=== PATIENT | female | born 2000 | race Caucasian/White ===

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

== ENCOUNTER → 2021-01-20 | Outpatient (CLI) | payer BC ==
[2021-01-20 16:38] LABS: BASO % 0.4 % (0.0-1.0); EOS # 0.1 10^3/uL (0.0-0.5); EOS % 2.6 % (0.0-3.0); HEMATOCRIT 41.6 % (36.0-47.0); HEMOGLOBIN 13.4 g/dl (12.0-15.5); LYMPH # 1.3 10^3/uL (1.5-5.0); LYMPH % 24.2 % (24.0-44.0); MEAN CORPUSCULAR HEMOGLOBIN 29.5 pg (27.0-33.0); MEAN CORPUSCULAR HGB CONC 32.2 g/dl (32.0-36.5); MEAN CORPUSCULAR VOLUME 91.6 fl (80.0-96.0); MONO # 0.3 10^3/uL (0.0-0.8); MONO % 5.5 % (2.0-8.0); NEUTROPHILS # 3.6 10^3/uL (1.5-8.5); NEUTROPHILS % 67.1 % (36.0-66.0); RED BLOOD COUNT 4.54 10^6/uL (4.00-5.40); WHITE BLOOD COUNT 5.3 10^3/uL (4.0-10.0)
[2021-01-20 17:08] LABS: ALBUMIN 3.8 GM/DL (3.2-5.2); ALT/SGPT 20 U/L (12-78); BILIRUBIN,TOTAL 0.4 MG/DL (0.2-1.0); BLOOD UREA NITROGEN 6 MG/DL (7-18); CALCIUM LEVEL 9.5 MG/DL (8.5-10.1); CARBON DIOXIDE LEVEL 26 MEQ/L (21-32); CHLORIDE LEVEL 106 MEQ/L (98-107); CREATININE FOR GFR 0.51 MG/DL (0.55-1.30); GLUCOSE, FASTING 97 MG/DL (70-100); POTASSIUM SERUM 4.9 MEQ/L (3.5-5.1); SODIUM LEVEL 137 MEQ/L (136-145); TOTAL PROTEIN 7.1 GM/DL (6.4-8.2)
[2021-01-24 15:07] LABS: EBV AB TO NUCLEAR ANTIGEN 43.8 U/mL (0.0-17.9); EBV VIRAL CAPSID AG IgM <36.0 U/mL (0.0-35.9)
== END ==
LOC: M WUC 13:44
PROVIDERS: ATTEND Physician Assistant
DX: R59.0 Localized enlarged lymph nodes (principal)

== ENCOUNTER → 2021-01-24 | Outpatient (REF) | payer BC | LOC: M SFHCWAGY 17:08 | PROVIDERS: ATTEND Obstetrics & Gynecology | DX: R10.2 Pelvic and perineal pain (principal) ==

== ENCOUNTER → 2021-02-07 | Outpatient (CLI) | payer BC ==
--- NOTE | 2021-02-07 10:27 | REP ---
INDICATION: R10.2 PELVIC PAIN COMPARISON: None. TECHNIQUE: Transabdominal pelvic ultrasound followed by transvaginal examination for better evaluation of the endometrium and adnexa with color Doppler evaluation of the ovaries. FINDINGS: Bladder is collapsed and measures 3.0 x 1.1 x 2.7 cm. Normal retroverted uterus measures 6.2 x 2.9 x 3.7 cm. The endometrial complex measures 6 mm thickness. No discrete uterine or endometrial abnormalities are appreciated. Ovaries are not visualized due to excessive overlying bowel gas. IMPRESSION: Limited examination. No obvious abnormality to the uterus. Ovaries not visualized. <Electronically signed by Kirill Delcid > 02/07/21 [id number]
== END ==
LOC: M WHC 09:38
PROVIDERS: ATTEND Obstetrics & Gynecology
DX: R10.2 Pelvic and perineal pain (principal)

== ENCOUNTER → 2021-07-31 | Outpatient (CLI) | payer BC ==
[~2021-07-31] MED LIST: MILI1TAB PO; NAPR-849 PO
== END ==
LOC: M LABSMTC 10:57
PROVIDERS: ATTEND Anesthesiology
DX: Z01.818 Encounter for other preprocedural examination (principal); Z11.52 Encounter for screening for COVID-19

== ENCOUNTER 2021-08-04 08:52 | Day surgery (SDC) | payer BC ==
[~2021-08-04] VITALS: Ht 157.5 cm; Wt 63.5 kg
[~2021-08-04 08:52] MED LIST changes: +LIDOCAINE 1% MDV 20ML VIAL SQ PRN; +LIDOCAINE 2% 100MG/5ML SDV (FOR ANES.) As Ordered ONE; +LR 1,000 ML IV ONE; +MIDAZOLAM INJ 2MG/2ML VIAL (J2250 PER 1MG) As Ordered ONE; +ROCURONIUM BROMIDE 50 MG/5 ML VIAL As Ordered ONE; +fentaNYL 100 MCG/2 ML INJECTION (J3010) As Ordered ONE; +propofoL 200 MG/20 ML VIAL As Ordered ONE
[2021-08-04 09:40] LABS: HEMATOCRIT 37.6 % (36.0-47.0); HEMOGLOBIN 12.3 g/dl (12.0-15.5); MEAN CORPUSCULAR HEMOGLOBIN 30.3 pg (27.0-33.0); MEAN CORPUSCULAR HGB CONC 32.7 g/dl (32.0-36.5); MEAN CORPUSCULAR VOLUME 92.6 fl (80.0-96.0); PLATELET COUNT, AUTOMATED 241 10^3/uL (150-450); RED BLOOD COUNT 4.06 10^6/uL (4.00-5.40); WHITE BLOOD COUNT 6.6 10^3/uL (4.0-10.0)
[2021-08-04] MEDS ORDERED: BUPIVACAINE HCL 0.25% 10ML VIAL As Ordered ONE ×2 (10:25→11:03)
[2021-08-04] MEDS ORDERED: SILVER NITRATE APPLICATOR As Ordered ONE (10:26)
[2021-08-04] MEDS ORDERED: ONDANSETRON 4MG/2ML VIAL As Ordered ONE (11:03)
[2021-08-04] MEDS ORDERED: KETOROLAC 60MG 2ML VIAL As Ordered ONE (11:03)
[2021-08-04] MEDS ORDERED: ACETAMINOPHEN 1000MG 100ML IV BTL (OFIRMEV) (J0131 PER 10MG) As Ordered ONE (11:03)
[2021-08-04] MEDS ORDERED: SUGAMMADEX SODIUM 500 MG/5 ML VIAL (BRIDION) As Ordered ONE (11:03)
[2021-08-04] MEDS ORDERED: METHYLENE BLUE 0.5% (5MG/ML) 10 ML AMP (PROVAYBLUE) As Ordered ONE (11:23)
[2021-08-04] MEDS ORDERED: ePHEDrine SULFATE 25 MG/5 ML(5MG/ML) SYRINGE As Ordered ONE (11:36)
[2021-08-04] MEDS ORDERED: fentaNYL 100 MCG/2 ML INJECTION (J3010) IV PRN (12:15)
[2021-08-04] MEDS ORDERED: ONDANSETRON 4MG/2ML VIAL IV PRN (12:15)
[2021-08-04] MEDS ORDERED: METOCLOPRAMIDE INJ 10MG/2ML VIAL (J2765 PER 1) IV PRN (12:15)
[2021-08-04] MEDS ORDERED: LR 1,000 ML IV SCH ×2 (12:15)
[2021-08-04] MEDS ORDERED: oxyCODONE 5MG TAB PO PRN (12:15)
--- NOTE | 2021-08-04 12:47 | ROOPDOC ---
[facility] Report Of Operation Report of Operation DATE OF PROCEDURE: 08/04/21 PREPROCEDURE DIAGNOSIS: Chronic pelvic pain. POSTPROCEDURE DIAGNOSES: Stage III endometriosis PROCEDURE PERFORMED: Diagnostic laparoscopy with chromopertubation. SURGEON: DO Alonso FITNESS TRAINER: none ANESTHESIA: GETA ESTIMATED BLOOD LOSS: Approximately 5 mL. COMPLICATIONS: None PREOPERATIVE ANTIBIOTICS: None indicated FINDINGS: Stage III endometriosis. Endometriosis implants throughout the posterior cul-de-sac, over the rectum, along bilateral ovarian fossa, bilateral uterosacral ligaments, and an implant noted on the peritoneal surface of the diaphragm (right upper quadrant). A large deep infiltrating implant was noted over the left external iliac artery. Fairground Operator images were taken and placed in patient's chart. DESCRIPTION OF PROCEDURE: The patient was taken to the operating room with an IV running. She was placed on the operating table in the dorsal supine position. General anesthesia was administered and the airway was secured without any difficulty. She was placed in the low lithotomy position. She was prepared and draped in the normal sterile fashion. A timeout was performed per protocol. The bladder was drained with an in and out catheter. A sterile speculum was placed with good visualization of the cervix. The cervix was grasped with a single-tooth tenaculum and downward traction was applied. Jeremias dilators were used to dilate the cervix to a #16. A Sensiotec uterine manipulator was placed. Sterile speculum and single-tooth tenaculum were removed. A glove switch was performed. Attention was turned to the abdomen. A 5 mm umbilical incision was made with the 11 blade. Veress needle was placed through this incision. Intraperitoneal placement was confirmed with ease of flow of normal saline, negative return on aspiration, and a positive drop test. Opening pressure was 2 mmHg. The abdomen was insufflated with 2 L of gas. A size 5 mm laparoscopic trocar was inserted under direct visualization into the intraperitoneal cavity without any difficulty. No incidental injury or bleeding was noted. The patient was placed in steep Trendelenburg. With uterine manipulation I was able to visualize all of the described endometriotic implants (see above). Given the extensive nature of the endometriosis, the decision was made to forego any excisional procedure for fear of creating adhesions that would compromise her fertility. Chromopertubation was performed demonstrating tubal patency. The decision was made to conclude the procedure. The patient was taken out of Trendelenburg. The gas was released from the abdomen. The laparoscopic cannula was removed. The incision was closed with 4-0 Monocryl in subcuticular fashion and Dermabond was placed over this incision. All instruments were removed from the vagina. Sponge needle and instrument counts were correct per protocol. She was transferred to the PACU in good, stable condition. ANGELO RHODES DO Aug 04, 2021 12:47
[2021-08-04] MEDS ORDERED: CLINDAMYCIN 900 MG in IV 1 EA IV ONE (12:50)
[2021-08-04] MEDS ORDERED: PERC5TAB12 PO (13:35)
[2021-08-04] MEDS ORDERED: GENTAMICIN 120 MG in D5W 50 ML IV ONE (14:00)
[2021-08-04 15:15] VITALS: BP 108/57
== END 2021-08-04 15:30 | disposition home or self-care (01) ==
LOC: M SDC 08:52
PROVIDERS: ATTEND Obstetrics & Gynecology
DX: N80.1 Endometriosis of ovary (principal); N80.5 Endometriosis of intestine; N80.3 Endometriosis of pelvic peritoneum; N80.8 Other endometriosis; Z88.0 Allergy status to penicillin; Z79.1 Long term (current) use of non-steroidal anti-inflammatories (NSAID); Z79.3 Long term (current) use of hormonal contraceptives
CPT/HCPCS: 36415; 49320; 58350; 81025; 85027; 86850; 86900; 86901; J0131; J1580; J1885; J2250; J2405; J2765; J3010; Q9968

== ENCOUNTER → 2021-10-02 | Outpatient (CLI) | payer BC ==
[~2021-10-02] MED LIST changes: -LIDOCAINE 1% MDV 20ML VIAL SQ PRN; -LIDOCAINE 2% 100MG/5ML SDV (FOR ANES.) As Ordered ONE; -LR 1,000 ML IV ONE; -MIDAZOLAM INJ 2MG/2ML VIAL (J2250 PER 1MG) As Ordered ONE; +PERC5TAB12 PO; -ROCURONIUM BROMIDE 50 MG/5 ML VIAL As Ordered ONE; -fentaNYL 100 MCG/2 ML INJECTION (J3010) As Ordered ONE; -propofoL 200 MG/20 ML VIAL As Ordered ONE
[2021-10-02 16:51] LABS: BASO % 0.6 % (0.0-1.0); EOS # 0.1 10^3/uL (0.0-0.5); HEMATOCRIT 38.6 % (36.0-47.0); HEMOGLOBIN 12.3 g/dl (12.0-15.5); LYMPH # 1.5 10^3/uL (1.5-5.0); LYMPH % 29.1 % (24.0-44.0); MEAN CORPUSCULAR HEMOGLOBIN 30.4 pg (27.0-33.0); MEAN CORPUSCULAR HGB CONC 31.9 g/dl (32.0-36.5); MEAN CORPUSCULAR VOLUME 95.5 fl (80.0-96.0); MONO # 0.3 10^3/uL (0.0-0.8); MONO % 6.2 % (2.0-8.0); NEUTROPHILS # 3.1 10^3/uL (1.5-8.5); NEUTROPHILS % 61.7 % (36.0-66.0); PLATELET COUNT, AUTOMATED 241 10^3/uL (150-450); RED BLOOD COUNT 4.04 10^6/uL (4.00-5.40)
[2021-10-02 17:26] LABS: ALBUMIN 3.7 GM/DL (3.2-5.2); ALT/SGPT 18 U/L (12-78); BILIRUBIN,TOTAL 0.3 MG/DL (0.2-1.0); BLOOD UREA NITROGEN 7 MG/DL (7-18); CALCIUM LEVEL 9.1 MG/DL (8.5-10.1); CARBON DIOXIDE LEVEL 27 MEQ/L (21-32); CHLORIDE LEVEL 108 MEQ/L (98-107); CREATININE FOR GFR 0.65 MG/DL (0.55-1.30); GLUCOSE, FASTING 76 MG/DL (70-100); POTASSIUM SERUM 4.5 MEQ/L (3.5-5.1); SODIUM LEVEL 142 MEQ/L (136-145); TOTAL PROTEIN 6.9 GM/DL (6.4-8.2)
== END ==
LOC: M WUC 09:32
PROVIDERS: ATTEND Physician Assistant
DX: K59.00 Constipation, unspecified (principal)

== ENCOUNTER → 2023-11-01 | Outpatient (REF) | payer BC | LOC: M PLALAB 11:40 | PROVIDERS: ATTEND Obstetrics & Gynecology | DX: Z12.4 Encounter for screening for malignant neoplasm of cervix (principal) ==

== ENCOUNTER → 2023-12-24 | Outpatient (CLI) | payer BC | LOC: M RAD 08:31 | PROVIDERS: ATTEND Nurse Practitioner Family | DX: K59.00 Constipation, unspecified (principal) ==

== ENCOUNTER → 2025-07-02 | Outpatient (REF) | payer BC ==
[2025-07-02 18:01] LABS: APPEARANCE, URINE CLEAR (CLEAR); BACTERIA, URINE AUTO 2+ (NEGATIVE); BILIRUBIN, URINE AUTO NEGATIVE (NEGATIVE); BLOOD, URINE BLOOD NEGATIVE (NEGATIVE); GLUCOSE, URINE (UA) AUTO NEGATIVE (NEGATIVE); KETONE, URINE AUTO NEGATIVE (NEGATIVE); LEUKOCYTE ESTERASE, URINE AUTO NEGATIVE (NEGATIVE); MUCUS, URINE SMALL (NEGATIVE); NITRITE, URINE AUTO NEGATIVE (NEGATIVE); PROTEIN, URINE AUTO NEGATIVE (NEGATIVE); RBC, URINE AUTO 1 /HPF (0-3); SPECIFIC GRAVITY URINE AUTO 1.005 (1.002-1.035); SQUAMOUS EPITHELIAL CELL UR AU 2 /HPF (0-6); UROBILINOGEN, URINE AUTO 0.2 mg/dL (0.0-2.0); WBC, URINE AUTO 1 /HPF (0-3)
== END ==
LOC: M SFHCCLAY 17:04
PROVIDERS: ATTEND Physician Assistant
DX: M54.50 Low back pain, unspecified (principal); F32.1 Major depressive disorder, single episode, moderate; N80.9 Endometriosis, unspecified